=== PATIENT | male | born 1960 | race Caucasian/White ===

== ENCOUNTER 2017-12-20 14:10 | Observation (INO) | payer MEDICAID, OTHER ==
[~2017-12-20] VITALS: Ht 195.6 cm; Wt 90.9 kg
[2017-12-20 14:32] LABS: BASOPHILS # (AUTO) 0.1 X10'3 (0-0.2); BASOPHILS % (AUTO) 0.9 % (0-1); EOSINOPHILS # (AUTO) 0.4 X10'3 (0-0.9); EOSINOPHILS % (AUTO) 5.5 % (0-6); HEMATOCRIT 44.2 % (42.0-52.0); HEMOGLOBIN 15.2 g/dl (14.0-17.9); LYMPHOCYTES # (AUTO) 2.1 X10'3 (1.1-4.8); LYMPHOCYTES % (AUTO) 29.9 % (21-51); MEAN CORPUSCULAR HEMOGLOBIN 30.9 PG (27.0-31.0); MEAN CORPUSCULAR HGB CONC 34.3 % (33.0-36.5); MEAN PLATELET VOLUME 7.2 FL (7.4-10.4); MONOCYTES # (AUTO) 0.4 X10'3 (0-0.9); MONOCYTES % (AUTO) 5.2 % (2-12); NEUTROPHILS # (AUTO) 4.1 X10'3 (1.8-7.7); NEUTROPHILS % (AUTO) 58.5 % (42-75); PLATELET COUNT 354 X10'3 (140-440); RED BLOOD COUNT 4.91 X10'6 (4.70-6.10); RED CELL DISTRIBUTION WIDTH 12.6 % (11.5-14.5); WHITE BLOOD COUNT 7.1 X10'3 (4.5-11.0)
[2017-12-20 14:42] LABS: PARTIAL THROMBOPLASTIN TIME 25 SECONDS (22-32)
[2017-12-20 14:46] LABS: ALANINE AMINOTRANSFERASE 42 U/L (12-78); ALBUMIN 3.6 G/DL (3.4-5.0); ALBUMIN/GLOBULIN RATIO 1.1 (1.1-1.5); ALKALINE PHOSPHATASE 73 IU/L (46-116); ANION GAP 10 (8-16); ASPARTATE AMINO TRANSFERASE 18 U/L (10-37); BILIRUBIN,TOTAL 0.2 MG/DL (0.1-1.0); BLOOD UREA NITROGEN 12 MG/DL (7-18); BUN/CREATININE RATIO 12.8 (5.4-32.0); CALCIUM 9.2 MG/DL (8.5-10.1); CHLORIDE 104 MMOL/L (99-107); CREATININE 0.94 MG/DL (0.60-1.10); GLUCOSE 112 MG/DL (70-104); POTASSIUM 4.1 MMOL/L (3.5-5.1); SODIUM 140 MMOL/L (135-145); TOTAL CARBON DIOXIDE 26.2 MMOL/L (24-32); TOTAL PROTEIN 6.9 G/DL (6.4-8.2); eGFR 83 ML/MIN
[2017-12-20] MEDS ORDERED: AMLO5TAB21 PO (14:54)
[2017-12-20] MEDS ORDERED: morphine 4 MG/ML inj SYRINge IV ONE (15:25)
[2017-12-20] MEDS ORDERED: NORT25CA PO (15:29)
[2017-12-20] MEDS ORDERED: EFF25T PO (15:30)
[2017-12-20] MEDS ORDERED: ondansetron/PF 4mg/2ml inj IV PRN (15:30)
[2017-12-20] MEDS ORDERED: acetaminophen 325mg tablet PO PRN (15:30)
[2017-12-20] MEDS ORDERED: mag hydrox/Alum hydrox/simeth 30ml oral suspension PO PRN (15:30)
[2017-12-20] MEDS ORDERED: morphine 4 MG/ML inj SYRINge IV PRN (15:30)
[2017-12-20] MEDS ORDERED: magnesium hydroxide 30ml (MOM) UD suspension PO PRN (15:30)
[2017-12-20] MEDS ORDERED: LORazepam 2 mg/ml vial IV ONE (16:10)
[2017-12-20] MEDS: normal saline 1000ml 1,000 ML IV SCH (16:19)
[2017-12-20 17:38] VITALS: BP 139/93
[2017-12-20] MEDS ORDERED: nitroGLYCERIN 0.4mg SUBLingual tab SL PRN (18:25)
[2017-12-20] MEDS ORDERED: aminophylline 250mg/10ml inj. IV PRN (18:25)
[2017-12-20] MEDS ORDERED: regadenoson 0.4mg/5ml syringe IV ONE (18:25)
[2017-12-20] MEDS ORDERED: metoprolol tartrate 1mg/ml inj IV PRN (18:25)
[2017-12-20 19:00] VITALS: BP 165/81
[2017-12-20] MEDS: carVEDilol 3.125mg tablet PO SCH (19:29)
[2017-12-20] MEDS: morphine 4 MG/ML inj SYRINge IV PRN (19:37)
[2017-12-20] MEDS: LORazepam 2 mg/ml vial IV PRN (21:46)
[2017-12-21] VITALS (12 sets, daily range): BP systolic 86–149; BP diastolic 60–99
[2017-12-21] MEDS: LORazepam 2 mg/ml vial IV PRN (02:50)
[2017-12-21] MEDS: morphine 4 MG/ML inj SYRINge IV PRN ×2 (02:50→10:58)
[2017-12-21] MEDS: normal saline 1000ml 1,000 ML IV SCH ×2 (02:56→11:28)
[2017-12-21] MEDS: carVEDilol 3.125mg tablet PO SCH (07:13)
[2017-12-21] MEDS ORDERED: pantoprazole 40mg Tablet.DR PO SCH (07:30)
[2017-12-21] MEDS ORDERED: enoxaparin 40mg/0.4ml syringe SUBCUT SCH (08:00)
[2017-12-21] MEDS ORDERED: atorvastatin 20mg tablet PO SCH (08:00)
[2017-12-21] MEDS ORDERED: aspirin 81mg tablet.DR PO SCH (08:00)
[2017-12-21] MEDS ORDERED: aminophylline inj. 10 ML IV ONE (08:43)
[2017-12-21] MEDS ORDERED: regadenoson 0.4mg/5ml syringe IV ONE (08:43)
[2017-12-21] MEDS ORDERED: OMEP40CA37 PO (12:10)
== END 2017-12-21 13:23 | disposition home or self-care (01) ==
LOC: ER 14:10 → ED HOLD 15:28 → SUR 3N 17:19
PROVIDERS: ADMIT Family Medicine; ATTEND Family Medicine
DX: R07.89 Other chest pain (principal); F41.9 Anxiety disorder, unspecified; F32.9 Major depressive disorder, single episode, unspecified; I10 Essential (primary) hypertension; K21.9 Gastro-esophageal reflux disease without esophagitis; F17.210 Nicotine dependence, cigarettes, uncomplicated; Z85.46 Personal history of malignant neoplasm of prostate
CPT/HCPCS: 36415; 71045; 78452; 80053; 84484; 85025; 85610; 85730; 87070; 93005; 93017; 96361; 96374; 96375; 96376; 99285; A9500; G0378; J0280; J2060; J2270; J7030; J1650

== ENCOUNTER → 2021-06-19 | Day surgery (SDC) | payer OTHER ==
[2021-06-13 15:49] LABS: BASOPHILS # (AUTO) 0.1 X10'3 (0-0.2); BASOPHILS % (AUTO) 0.9 % (0-1); EOSINOPHILS # (AUTO) 0.1 X10'3 (0-0.9); EOSINOPHILS % (AUTO) 1.7 % (0-6); MEAN CORPUSCULAR HEMOGLOBIN 30.4 PG (27.0-31.0); MEAN CORPUSCULAR HGB CONC 34.2 g/dL (33.0-36.5); MEAN CORPUSCULAR VOLUME 88.7 FL (78-98); MEAN PLATELET VOLUME 6.7 FL (7.4-10.4); MONOCYTES # (AUTO) 0.5 X10'3 (0-0.9); MONOCYTES % (AUTO) 6.5 % (2-12); NEUTROPHILS # (AUTO) 4.3 X10'3 (1.8-7.7); NEUTROPHILS % (AUTO) 61.9 % (42-75); PRE OP HEMATOCRIT 43.5 % (42.0-52.0); PRE OP HEMOGLOBIN 14.9 g/dL (14.0-17.9); PRE OP PLATELET COUNT 330 X10'3 (140-440); RED CELL DISTRIBUTION WIDTH 12.9 % (11.5-14.5)
[2021-06-13 16:07] LABS: ALBUMIN 4.1 G/DL (3.4-5.0); ALBUMIN/GLOBULIN RATIO 1.3 (1.1-1.5); ALKALINE PHOSPHATASE 83 IU/L (46-116); BLOOD UREA NITROGEN 17 MG/DL (7-18); BUN/CREATININE RATIO 12.7 (5.4-32.0); CALCIUM 8.6 MG/DL (8.5-10.1); CHLORIDE 110 MMOL/L (99-107); CREATININE 1.34 MG/DL (0.60-1.10); PRE OP ALT 32 U/L (30-65); PRE OP ANION GAP 8 (8-16); PRE OP AST 20 U/L (10-37); PRE OP BILIRUB, TOTAL 0.5 MG/DL (0.0-1.0); PRE OP GLUCOSE 65 MG/DL (70-104); PRE OP POTASSIUM 3.7 MMOL/L (3.4-5.1); PRE OP SODIUM 147 MMOL/L (135-145); TOTAL CARBON DIOXIDE 29.5 MMOL/L (24-32); TOTAL PROTEIN 7.2 G/DL (6.4-8.2); eGFR 55 ML/MIN
[~2021-06-19] VITALS: Ht 193 cm; Wt 82.9 kg
[~2021-06-19] MED LIST: AMLO5TAB21 PO; ATOR10TA PO; BUPIVAcaine/PF 2.5mg/ml (0.25%) 10ml vial ONE; BUPR-94 PO; BUPR100T13 PO; HYDROcodone/acetaminophen 5mg/325mg tablet PO PRN; HYDROmorphone/PF 0.2 MG/ML SYRINGE IV PRN; LIDOcaine 1% 30ml preserv. free vial ONE; LIDOcaine 2% (20mg/ml) 5ml vial ONE; LIDOcaine 2% 10ml TOPICAL JELLY (Urojet) MM ONE; LIDOcaine 2% 10ml TOPICAL JELLY (Urojet) ONE; acetaminophen 1,000mg/100ml IV 100 ML IV PRN; cefazolin/dext.iso 2gm/100ml IV ONE; dexamethasone sod phosphate 4mg/ml inj. ONE; famotidine 20mg tablet PO ONE; fentaNYL /PF 50mcg/ml 5ml ampule ONE; glycopyrrolate 0.2mg/ml inj ONE; hydrALAZINE 20mg/ml inj. IV PRN; labetalol 20mg/4ml (5mg/ml) syringe IV PRN; meperidine/PF 25mg/ml syringe IV PRN; midazolam 1 mg/ML 2ml injection ONE; morphine 2 MG/ML inj. syringe IV PRN; morphine 4 MG/ML inj SYRINge IV PRN; neostigmine methylsulfate 1 MG/ML 10ml vial ONE; ondansetron/PF 4mg/2ml inj IV PRN; ondansetron/PF 4mg/2ml inj ONE; proCHLORperazine 10 MG/2 ml inj IV PRN; propofol inj 20 ML IV ONE; ringers solution, lacted 1,000 ML IV SCH; rocuronium 10mg/ml inj IV ONE; sevoflurane 250ml liquid IH ONE
[2021-06-19 09:15] VITALS: BP 149/80
[2021-06-19 12:16] VITALS: BP 158/71
--- NOTE | 2021-06-19 12:16 | NUR ---
ASSUME CARE VSS NO C/O PAIN. DRESSING TO ABD LAP SITES CDI. IV R AC 22G PATIENT CONT TO MONITOR. Addendum: 06/19/21 at 1237 by Harper Stephenson RN Amended: Links added.
[2021-06-19 12:26] VITALS: BP 132/86
[2021-06-19 12:36] VITALS: BP 138/86
[2021-06-19 12:46] VITALS: BP 130/88
--- NOTE | 2021-06-19 12:50 | NUR ---
PT MORE AWAKE VSS NO DISTRESS AROLDO PO'S INSTR ON VOIDING PRIOR TO DC HOME. WATER PROVIDED AROLDO WELL. Addendum: 06/19/21 at 1251 by Harper Stephenson RN Amended: Links added.
[2021-06-19 12:56] VITALS: BP 128/88
--- NOTE | 2021-06-19 13:06 | NUR ---
PT MORE AWAKE SITTING UP IN BED AT BEDSIDE. DENIES PAIN, DRESSIG TO ABD CDI. DC INSTR GIVEN NO ?'S OR CONCERNS MEETS CRITERIA TO DC HOME AFTER VOIDS. Addendum: 06/19/21 at 1307 by Harper Stephenson RN Amended: Links added.
--- NOTE | 2021-06-19 13:39 | NUR ---
ASSIST PY UP TO BR UNABLE TO VOID FLUIDS PROVIDED CONT TO MONITOR Addendum: 06/19/21 at 1340 by Harper Stephenson RN Amended: Links added.
--- NOTE | 2021-06-19 14:00 | NUR ---
PT UNABLE TO VOID AFTER PO'S AND UP TO BR SEVERAL TIMES. Addendum: 06/19/21 at 1458 by Harper Stephenson RN Amended: Links added.
--- NOTE | 2021-06-19 14:15 | NUR ---
[facility]T NOT AVAILABLE FROM [facility]ARM YET. Addendum: 06/19/21 at 1458 by Harper Stephenson RN Amended: Links added.
--- NOTE | 2021-06-19 14:25 | NUR ---
BLADDER SCAN >300 ML WATKINS CATH PLACED AROLDO WELL, DRAIN APPROX 500ML CLEAR YELLOW URINE PT SENT HOME WITH WATKINS AND INSTR ON HOW TO CARE FOR WATKINS AND PT WILL FOLLOW UP WITH THE MD TOMORROW. Addendum: 06/19/21 at 1458 by Harper Stephenson RN Amended: Links added.
== END | disposition home or self-care (01) ==
LOC: PAS 09:12
PROVIDERS: ATTEND Surgery
DX: K42.0 Umbilical hernia with obstruction, without gangrene (principal); K40.90 Unilateral inguinal hernia, without obstruction or gangrene, not specified as recurrent; F17.210 Nicotine dependence, cigarettes, uncomplicated; I10 Essential (primary) hypertension; F41.9 Anxiety disorder, unspecified; F32.9 Major depressive disorder, single episode, unspecified; M19.90 Unspecified osteoarthritis, unspecified site; G89.29 Other chronic pain; Z79.899 Other long term (current) drug therapy; Z98.890 Other specified postprocedural states; Z20.822 Contact with and (suspected) exposure to COVID-19; Z82.49 Family history of ischemic heart disease and other diseases of the circulatory system
CPT/HCPCS: 36415; 49587; 49650; 80053; 82948; 85025; 93005; C1781; J1100; J2001; J2250; J2405; J2704; J2710; J3010; J3490; J7120; U0003; U0005; Z7506; Z7508; Z7512; A4215; A4618; A7000